=== PATIENT | male | born 2000 | race Caucasian/White ===

== ENCOUNTER 2022-02-08 00:31 | Inpatient (IN) ==
[2022-02-08 00:56] LABS: Basophils % 0.3 %; Eosinophils # 0.2 K/mcL (0.0-0.6); Eosinophils % 1.1 %; Hematocrit 49.3 % (37.5-50.1); Hemoglobin 17.5 g/dL (12.9-16.9); Immature Granulocytes % 0.3 % (0-4); Lymphocytes # 2.3 K/mcL (0.6-4.6); Lymphocytes % 15.2 %; Mean Corpuscular HGB Conc 35.5 g/dL (31.6-35.5); Mean Corpuscular Hemoglobin 31.8 pg (28.0-33.3); Mean Corpuscular Volume 89.6 fL (83.0-100.0); Mean Platelet Volume 10.8 fL (9.4-12.4); Monocytes % 6.5 %; Neutrophils # 11.4 K/mcL (1.6-8.9); Platelet Count 284 K/mcL (140-400); Red Cell Distribution Width 12.7 % (11.5-14.5); Segmented Neutrophils % 76.6 %; White Blood Count 14.9 K/mcL (4.3-11.1)
[2022-02-08 01:05] LABS: Amphetamine Screen,Urine Negative ng/mL (Cutoff=1000); Barbiturate Screen,Urine Negative ng/mL (Cutoff=200); Benzodiazepines Screen,Urine Negative ng/mL (Cutoff=200); Cannabinoid Screen,Urine Negative ng/mL (Cutoff = 50); Cocaine Screen,Urine Negative ng/mL (Cutoff= 300); Opiate Screen,Urine Negative ng/mL (Cutoff=300); Phencyclidine Screen,Urine Negative ng/mL (Cutoff=25)
[2022-02-08 01:08] LABS: Bacteria,Urine Few per hpf (None-Few); Bilirubin,Urine Negative (Negative); Blood,Urine Negative (Negative); Clarity,Urine Clear (Clear); Color,Urine Yellow (Yellow); Glucose,Urine (UA) Normal (Normal); Hyaline Casts,Urine Few per lpf (None Seen); Ketones,Urine 20 mg/dL (Negative); Leukocyte Esterase,Urine Negative (Negative); Mucus,Urine Many per lpf (None-Few); Nitrite,Urine Negative (Negative); Protein,Urine 70 mg/dL (Neg-Trace); Specific Gravity,Urine > 1.030 (1.010-1.025); WBC,Urine 0-3 per hpf (0-3)
[2022-02-08 01:16] LABS: Acetaminophen < 10 mcg/mL (10-20); Alanine Aminotransferase 15 Units/L (7-52); Albumin/Globulin Ratio 1.8 (1.1-2.2); Alkaline Phosphatase 52 Units/L (34-104); Aspartate Amino Transferase 29 Units/L (13-39); BUN/Creatinine Ratio 11 (6-26); Bilirubin,Direct 0.1 mg/dL (0.0-0.2); Bilirubin,Indirect 0.9 mg/dL (0.0-1.0); Blood Urea Nitrogen 15 mg/dL (6-20); Calcium 9.9 mg/dL (8.6-10.3); Carbon Dioxide 26 mEq/L (23-29); Chloride 103 mEq/L (98-107); Chol/HDL Ratio 3.1 (0-4.9); Cholesterol 159 mg/dL (< 200); Ethanol < 10 mg/dL (Less than 10); Globulin 2.8 g/dL (2.4-3.5); Glucose 87 mg/dL (70-105); HDL Cholesterol 51 mg/dL (40-59); LDL Cholesterol,Calculated 95 mg/dL (< 100); Osmolality,Calculated 288 (280-300); Potassium 3.9 mEq/L (3.5-5.1); Salicylate < 2.5 mg/dL (15.0-30.0); Sodium 139 mEq/L (136-145); Total Protein 7.8 g/dL (6.4-8.9); Triglycerides 67 mg/dL (< 150); eGFR For African Americans > 60 (> 60); eGFR For Non-African Americans > 60 (> 60)
[2022-02-08 03:21] LABS: Estimated Average Glucose 100 mg/dl; Hemoglobin A1C 5.1 %
[2022-02-08 06:02] LABS: Influenza A PCR Negative (Negative); Influenza B PCR Negative (Negative); Resp. Syncytial Virus PCR Negative (Negative)
[2022-02-08 06:06] LABS: SARS-CoV-2 by PCR (In House) Negative (Negative)
[2022-02-08] MEDS ORDERED: QUEtiapine Fumarate 25 MG TABLET PO PRN (06:10)
[2022-02-08] MEDS ORDERED: haloperidoL 5 MG TABLET PO PRN (06:10)
[2022-02-08] MEDS ORDERED: Haloperidol Lactate 5 MG/ML VIAL IM PRN (06:10)
[2022-02-08] MEDS ORDERED: hydrOXYzine pamoate 25 MG CAPSULE PO PRN (06:10)
[2022-02-08] MEDS ORDERED: *HR* LORazepam 2 MG/ML VIAL IM PRN (06:10)
[2022-02-08] MEDS ORDERED: *HR* LORazepam 1 MG TABLET PO PRN (06:10)
[2022-02-08] MEDS ORDERED: Ibuprofen 400 MG TABLET PO PRN (06:10)
[2022-02-08] MEDS: Nicotine 21 MG PATCH.TD24 TD SCH (13:02)
[2022-02-08] MEDS: Nicotine 2 MG GUM BC PRN (19:59)
[2022-02-09] MEDS: Nicotine 21 MG PATCH.TD24 TD SCH (09:48)
[2022-02-09] MEDS: Nicotine 2 MG GUM BC PRN ×2 (15:53→18:17)
[2022-02-10 08:24] LABS: Basophils % 0.4 %; Eosinophils # 0.3 K/mcL (0.0-0.6); Eosinophils % 2.8 %; Hematocrit 47.3 % (37.5-50.1); Hemoglobin 16.6 g/dL (12.9-16.9); Immature Granulocytes % 0.2 % (0-4); Lymphocytes # 4.1 K/mcL (0.6-4.6); Lymphocytes % 44.8 %; Mean Corpuscular HGB Conc 35.1 g/dL (31.6-35.5); Mean Corpuscular Hemoglobin 31.8 pg (28.0-33.3); Mean Corpuscular Volume 90.6 fL (83.0-100.0); Mean Platelet Volume 11.1 fL (9.4-12.4); Monocytes # 0.7 K/mcL (0.0-1.3); Monocytes % 7.1 %; Neutrophils # 4.1 K/mcL (1.6-8.9); Platelet Count 243 K/mcL (140-400); Red Blood Count 5.22 M/mcL (4.19-5.50); Red Cell Distribution Width 12.8 % (11.5-14.5); Segmented Neutrophils % 44.7 %; White Blood Count 9.2 K/mcL (4.3-11.1)
[2022-02-10 08:41] LABS: Alanine Aminotransferase 12 Units/L (7-52); Albumin 4.1 g/dL (3.5-5.7); Alkaline Phosphatase 43 Units/L (34-104); Aspartate Amino Transferase 15 Units/L (13-39); BUN/Creatinine Ratio 18 (6-26); Bilirubin,Total 0.7 mg/dL (0.3-1.0); Blood Urea Nitrogen 16 mg/dL (6-20); Calcium 9.1 mg/dL (8.6-10.3); Carbon Dioxide 28 mEq/L (23-29); Chloride 105 mEq/L (98-107); Globulin 2.1 g/dL (2.4-3.5); Glucose 88 mg/dL (70-105); Osmolality,Calculated 289 (280-300); Potassium 3.7 mEq/L (3.5-5.1); Sodium 139 mEq/L (136-145); Total Protein 6.2 g/dL (6.4-8.9); eGFR For African Americans > 60 (> 60); eGFR For Non-African Americans > 60 (> 60)
[2022-02-10] MEDS: Nicotine 2 MG GUM BC PRN ×3 (10:33→19:29)
[2022-02-10] MEDS: Nicotine 21 MG PATCH.TD24 TD SCH (10:34)
[2022-02-10 18:11] LABS: Bilirubin,Urine Negative (Negative); Blood,Urine Negative (Negative); Clarity,Urine Clear (Clear); Color,Urine Light-Yellow (Yellow); Glucose,Urine (UA) Normal (Normal); Ketones,Urine Negative (Negative); Leukocyte Esterase,Urine Negative (Negative); Nitrite,Urine Negative (Negative); Protein,Urine Negative (Neg-Trace); Specific Gravity,Urine 1.015 (1.010-1.025); Urobilinogen,Urine Normal (Normal)
[2022-02-11] MEDS: Nicotine 2 MG GUM BC PRN (09:57)
[2022-02-11] MEDS: Nicotine 21 MG PATCH.TD24 TD SCH (10:46)
[2022-02-11 12:44] VITALS: BP 123/81; PULSE 62; TEMP 97.1; O2SAT 98
== END 2022-02-11 13:30 | disposition home or self-care (01) | DRG 758 ==
LOC: EMEROOARM 00:31 → 1ANU 00:31
PROVIDERS: ADMIT Psychiatry & Neurology Neurology; ATTEND Psychiatry & Neurology Neurology